=== PATIENT | female | born 1985 | race Caucasian/White ===

== ENCOUNTER → 2020-02-15 | Outpatient (CLI) | payer OTHER ==
--- NOTE | 2020-02-15 17:09 | KCIC ---
EXAM: MRI left foot, attention to midfoot DATE: 02/15/2020 2:00 PM CLINICAL HISTORY: LEFT FOOT PAIN/STRESS FRACTURE - Pain across top of midfoot for several months. COMPARISON: None available. TECHNIQUE: Multiplanar, multisequence MR imaging of the midfoot performed without IV contrast. FINDINGS: T1 marrow signal is grossly preserved. No fracture or osteonecrosis. Lisfranc ligament is intact. Visualized flexor and extensor tendons are intact. No tenosynovitis. A small ganglion is seen arising from the lateral dorsal talonavicular joint. Mild hallux MTP joint effusion. Bipartite medial hallux MTP sesamoid with mild associated edema, likely sesamoiditis. The intrinsic muscles of the foot are normal in signal and morphology. IMPRESSION: 1. Bipartite appearance of the medial hallux MTP sesamoid likely sesamoiditis. Otherwise no acute fracture or significant marrow edema 2. Small ganglion arising from the dorsal-lateral aspect of the talonavicular joint. Electronically signed by: Esdras Castillo MD (02/15/2020 5:06 PM) ANNA
== END ==
LOC: KCIC MRI 14:02
PROVIDERS: ATTEND Family Medicine
DX: M25.475 Effusion, left foot (principal); M67.472 Ganglion, left ankle and foot
CPT/HCPCS: 73718